=== PATIENT | female | born 1990 | race African-American/Black ===

== ENCOUNTER 2019-02-21 14:15 | Emergency (ER) | payer SELFPAY ==
[~2019-02-21] VITALS: Ht 177.8 cm; Wt 173.7 kg
[2019-02-21 14:43] VITALS: BP 156/60
--- NOTE | 2019-02-21 15:32 | RAD ---
KNEE LEFT 3V History: Left knee pain. Technique: 3 views left knee. Comparison: None. Findings: Mild tricompartment knee degenerative changes with joint space narrowing and marginal osteophyte formation. Normal alignment. No fracture. Moderate knee joint effusion. Irregularity of the anteromedial femoral condyle. Soft tissues unremarkable. Impression: 1. No acute osseous abnormality. 2. Mild tricompartment knee DJD. 3. Moderate knee joint effusion. 4. Irregularity of the anteromedial femoral condyle and lateral view, may indicate osteochondral injury. Electronically signed by: Da Bennett DO (02/21/2019 3:29 PM) [facility]
--- NOTE | 2019-02-21 15:59 | PHYS DOC ---
Past Medical History Past Medical History: No Pertinent History Past Surgical History: No Surgical History Alcohol Use: None Drug Use: None Adult General Chief Complaint Chief Complaint: KNEE INJURY HPI HPI Patient is a 28 year old female in no significant medical history presents to the ED today complaining of 6 out of 10 left anterior knee pain that began 6 days ago while playing. Patient states another player ran into her knee. Patient denies falling. States the pain is worse on extension of the knee. Denies anything specifically relieving the pain. Describes the pain as sharp and intermittent. Review of Systems Review of Systems Constitutional: Denies fever or chills [] Musculoskeletal: Reports left knee pain Integument: Denies rash or skin lesions [] Neurologic: Denies headache, focal weakness or sensory changes [] All other systems were reviewed and found to be within normal limits, except as documented in this note. Allergies Allergies Allergies Coded Allergies Type Severity Reaction Last Updated Verified No Known Drug Allergies 02/21/19 No Physical Exam Physical Exam Constitutional: Well developed, well nourished, no acute distress, non-toxic appearance. [] Skin: Warm, dry, no erythema, no rash. [] Back: No tenderness, no CVA tenderness. [] Extremities: Left knee with no obvious deformity. Patient is morbidly obese. Full range of motion to the left knee. +2 left pedal pulse. Cap refill less than 2 seconds the left toes. Sensation intact to the left lower extremity. Neurologic: Alert and oriented X 3, normal motor function, normal sensory function, no focal deficits noted. [] Psychologic: Affect normal, judgement normal, mood normal. [] Current Patient Data Vital Signs Vital Signs Date Time Temp Pulse Resp B/P (MAP) Pulse Ox O2 Delivery O2 Flow Rate FiO2 02/21/19 14:43 98.3 77 16 156/60 (92) 96 Room Air 98.3 EKG EKG [] Radiology/Procedures Radiology/Procedures []PROCEDURE: KNEE LEFT 3V KNEE LEFT 3V History: Left knee pain. Technique: 3 views left knee. Comparison: None. Findings: Mild tricompartment knee degenerative changes with joint space narrowing and marginal osteophyte formation. Normal alignment. No fracture. Moderate knee joint effusion. Irregularity of the anteromedial femoral condyle. Soft tissues unremarkable. Impression: 1. No acute osseous abnormality. 2. Mild tricompartment knee DJD. 3. Moderate knee joint effusion. 4. Irregularity of the anteromedial femoral condyle and lateral view, may indicate osteochondral injury. Electronically signed by: Da Bush DO (02/21/2019 3:29 PM) [facility] DICTATED and SIGNED BY: DA BUSH DO DATE: 02/21/19 1529 Course & Med Decision Making Course & Med Decision Making Pertinent Labs and Imaging studies reviewed. (See chart for details) This is a 28-year-old female patient presenting to the ED today with left knee pain, djd and joint effusion. Donald bandage applied to the right knee. Ice elevation encouraged. Follow-up with orthopedic doctor in one week. Diclofenac for pain. Dragon Disclaimer Dragon Disclaimer This electronic medical record was generated, in whole or in part, using a voice recognition dictation system. Departure Departure Impression: Primary Impression: Right knee pain Additional Impression: DJD (degenerative joint disease) of knee Disposition: HOME, SELF-CARE Condition: STABLE Referrals: NO PCP (PCP) follow up in one week Patient Instructions: Knee Pain, [id number] Additional Instructions: You were evaluated in the emergency room for right knee pain, your right knee x- rays were negative for any acute findings. You have arthritis in the knee try to ice and elevate the knee, apply donald bandage as needed. 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
[2019-02-21] MEDS ORDERED: DICL50TA2 PO (16:10)
== END 2019-02-21 16:37 | disposition home or self-care (01) ==
LOC: ER 14:15
DX: M17.12 Unilateral primary osteoarthritis, left knee (principal); M25.462 Effusion, left knee
CPT/HCPCS: 73562; 99284-25

== ENCOUNTER 2019-04-03 20:44 | Emergency (ER) | payer SELFPAY ==
[~2019-04-03] VITALS: Ht 154.9 cm; Wt 153.3 kg
[~2019-04-03 20:44] MED LIST: DICL50TA2 PO
[2019-04-03 21:01] VITALS: BP 150/81
--- NOTE | 2019-04-03 21:18 | PHYS DOC ---
Past Medical History Past Medical History: No Pertinent History Past Surgical History: No Surgical History Alcohol Use: None Drug Use: None Adult General Chief Complaint Chief Complaint: FEVER HPI HPI Patient is a 28 year old female who presents with 1 day of nasal congestion and chills. Patient states she's been taking Tylenol. 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 Patient denies any pain. Review of Systems Review of Systems Constitutional: fever or chills [] HENT: nasal congestion or denies sore throat [] Respiratory: cough or denies shortness of breath [] All other systems were reviewed and found to be within normal limits, except as documented in this note. Allergies Allergies Allergies Coded Allergies Type Severity Reaction Last Updated Verified No Known Drug Allergies 02/21/19 No Physical Exam Physical Exam Constitutional: Well developed, well nourished, no acute distress, non-toxic appearance. [] HENT: Normocephalic, atraumatic, bilateral external ears normal, oropharynx moist, no oral exudates, nose normal. [] Eyes: PERRLA, EOMI, conjunctiva normal, no discharge. [] Neck: Normal range of motion, no tenderness, supple, no stridor. [] Cardiovascular:Heart rate regular rhythm, no murmur [] Lungs & Thorax: Bilateral breath sounds clear to auscultation [] Abdomen: Bowel sounds normal, soft, no tenderness, no masses, no pulsatile masses. [] Skin: Warm, dry, no erythema, no rash. [] Neurologic: Alert and oriented X 3, normal motor function, normal sensory function, no focal deficits noted. [] Psychologic: Affect normal, judgement normal, mood normal. Normal physical exam [] Current Patient Data Vital Signs Vital Signs Date Time Temp Pulse Resp B/P (MAP) Pulse Ox O2 Delivery O2 Flow Rate FiO2 04/03/19 21:01 98.4 88 16 150/81 (104) 98 Room Air 98.4 Lab Values Laboratory Tests Test 04/03/19 21:01 POC Urine HCG, Qualitative Hcg negative (Negative) EKG EKG [] Radiology/Procedures Radiology/Procedures [] Course & Med Decision Making Course & Med Decision Making Patient is a 28 year old female who presents with 1 day of nasal congestion and chills. Patient states she's been taking Tylenol. 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 Patient denies any pain. Alert and oriented. Vitals and within normal limits. Afebrile. Skin pink warm and dry. Lungs are clear to auscultation all lobes. Bilateral tympanic membranes are pearly white. Throat is pink and without exudates or swelling. Patient to drink lots of fluids and follow-up with her primary care provider. Patient to take [id number] cold medications and to continue taking ibuprofen and Tylenol. Dragon Disclaimer Dragon Disclaimer This electronic medical record was generated, in whole or in part, using a voice recognition dictation system. Departure Departure Impression: Primary Impression: Nasal congestion Disposition: 01 HOME, SELF-CARE Condition: STABLE Referrals: NO PCP (PCP) Patient Instructions: Medical Screening Exam Additional Instructions: Follow up witn primary care physician. Take over the counter cold medications and nasal spray. Continue taking Tylenol. BOAZ OCASIO APRN Apr 03, 2019 21:18
== END 2019-04-03 21:35 | disposition home or self-care (01) ==
LOC: ER 20:44
DX: R09.81 Nasal congestion (principal); R68.83 Chills (without fever)
CPT/HCPCS: 81025; 99282